=== PATIENT | male | born 1990 ===

== ENCOUNTER 2021-07-02 19:47 | Emergency (ER) | payer MEDICAID ==
[~2021-07-02] VITALS: Ht 165.1 cm; Wt 58.0 kg
[2021-07-02] MEDS ORDERED: B25 MT (20:32)
[2021-07-02 20:39] VITALS: BP 140/83
[2021-07-02] MEDS ORDERED: DIPHENHYDRAMINE 25MG CAPSULE PO ONE (20:45)
== END 2021-07-02 20:45 | disposition home or self-care (01) ==
LOC: ER 19:47
DX: L50.9 Urticaria, unspecified (principal); T78.40XA Allergy, unspecified, initial encounter; X58.XXXA Exposure to other specified factors, initial encounter; Z88.0 Allergy status to penicillin
CPT/HCPCS: 99282; Q0163